=== PATIENT | female | born 2000 | race Caucasian/White ===

== ENCOUNTER 2021-01-16 09:30 | Outpatient (CLI) | payer BC ==
[~2021-01-16] VITALS: Ht 162.6 cm; Wt 56.0 kg
[2021-01-16 09:35] VITALS: BP 115/81
[2021-01-16] MEDS ORDERED: ACETAMINOPHEN 500 MG TAB (TYLENOL) PO PRN (09:45)
[2021-01-16] MEDS ORDERED: ONDANSETRON 4 MG/2 ML (SDV) Z0FRAN IV PRN (09:45)
[2021-01-16] MEDS ORDERED: CASIRIVIMAB/IMDEVIMAB 1,200 MG in NS (IVPB) 250 ML IV ONE (09:45)
[2021-01-16] MEDS ORDERED: EPINEPHrine INJECTION 1 MG/ML AMP IM PRN (09:45)
[2021-01-16] MEDS ORDERED: diphenhydrAMINE 50 MG/ML INJ (BENADRYL) IV PRN (09:45)
[2021-01-16 11:16] VITALS: BP 101/74
== END 2021-01-16 11:15 | disposition home or self-care (01) ==
LOC: INFUSION 09:30
PROVIDERS: ATTEND Nurse Practitioner Family
DX: Z23 Encounter for immunization (principal); U07.1 COVID-19

== ENCOUNTER → 2021-10-29 | Outpatient (CLI) | payer BC ==
--- NOTE | 2021-10-29 13:48 | Diagnostic Imaging Report ---
INDICATION: survey. TECHNIQUE: Multiple Real-time grayscale images were obtained over the gravid uterus. COMPARISON: None. FINDINGS: There is a single live fetus in a cephalic presentation. The heart rate was recorded at 144 BPM. The placenta is anterior. The amniotic fluid volume is normal. The cervical length is 4.2 cm. The survey shows the kidneys, bladder, and stomach to be unremarkable. The brain is unremarkable. There is a four-chamber heart. There is a three-vessel cord with normal insertion. The spine is unremarkable. Biometrical measurements are as follows: Biparietal 4.68 cm, age 20 weeks 2 days. Head circumference 17.50 cm, age 20 weeks 1 days. Abdominal circumference 14.78 cm, age 20 weeks 1 days. Femur length 3.33 cm, age 20 weeks 3 days. Sonographic estimate age: 20 weeks 2 days. Sonographic estimated date of delivery: 03/19/2022. Estimated Weight: 339 gm (+/- 50 gm). LMP percentile: 66%. heart rate: 144 beats per minute. number: 1 of 1. IMPRESSION: Single live IUP of 20 weeks 2 days gestational age. The estimated date of confinement sonographically is 03/19/2022. No complicating features are detected. Dictated by: Dictated on workstation # [id number]
== END ==
LOC: RAD 10:00
PROVIDERS: ATTEND Obstetrics & Gynecology
DX: Z34.02 Encounter for supervision of normal first pregnancy, second trimester (principal); Z3A.20 20 weeks gestation of pregnancy
CPT/HCPCS: 76805